=== PATIENT | female | born 1995 | race Two or more races ===

== ENCOUNTER 2022-06-25 23:33 | Emergency (ER) | payer BC, MEDICAID ==
[~2022-06-25] VITALS: Ht 165.1 cm; Wt 83.6 kg
[~2022-06-25 23:33] MED LIST: PREN1TAB71 PO
[2022-06-25 23:59] VITALS: BP 117/87
[2022-06-26] MEDS ORDERED: ACET-1158 PO (00:52)
[2022-06-26] MEDS ORDERED: AMOX-277 PO (00:52)
[2022-06-26] MEDS ORDERED: methylPREDNISolone SOD SUCC 125 MG/2 ML VL IM ONE (01:00)
[2022-06-26] MEDS ORDERED: cefTRIAXone SOD 1,000 MG VL IM ONE (01:00)
== END 2022-06-26 01:09 | disposition home or self-care (01) ==
LOC: ER 23:33
DX: J02.0 Streptococcal pharyngitis (principal); B95.4 Other streptococcus as the cause of diseases classified elsewhere; Z79.899 Other long term (current) drug therapy
CPT/HCPCS: 87880; 96372; 99284; J0696; J2930